=== PATIENT | female | born 1995 | race Caucasian/White ===

== ENCOUNTER 2019-08-21 14:32 | Observation (INO) ==
[2019-08-21] MEDS ORDERED: MoRPHine SULFATE 4 MG/ML 1 ML CARP\\VIAL IV STA (14:47)
[2019-08-21] MEDS ORDERED: SODIUM CHLORIDE 0.9% 1000ML 2,000 ML IV ONE (14:47)
[2019-08-21] MEDS ORDERED: ONDANSETRON INJ 2 MG/ML 2 ML VIAL IV STA (14:48)
[2019-08-21 15:28] LABS: Hematocrit (blood only) 40.5 % (37-47); Hemoglobin 13.6 g/dL (12.0-16.0); Mean Corpuscular Hemoglobin 29.6 pg (25-34); Mean Corpuscular Hgb Conc 33.6 g/dL (32-36); Mean Platelet Volume 10.9 fL (7.4-10.4); Platelet Count 254 K/uL (130-400); RDW Coefficient of Variation 13.5 % (11.5-14.5); RDW Standard Deviation 43.7 fL (36.4-46.3)
[2019-08-21 15:40] LABS: iSTAT Creatinine 0.8 mg/dl (0.6-1.3); iSTAT Hemoglobin 14.3 g/dl (12.0-16.0); iSTAT Ionized Calcium 1.16 mmol/l (1.12-1.32); iSTAT Potassium 3.8 mEq/L (3.3-5.0)
[2019-08-21 15:47] LABS: Albumin Level 3.8 gm/dl (3.4-5.0); BUN Creatinine Ratio 6.9 (10-20); Creatinine Clr Calc Pharmacy 71.6 ml/min; Est GFR (African American) 90.4; Potassium 3.6 mmol/L (3.5-5.1)
[2019-08-21 15:50] LABS: Albumin Globulin Ratio 0.8 (0.9-2); Bilirubin,Total 0.6 mg/dl (0.2-1); Globulin 4.8 gm/dl (2.5-4.0); Total Protein 8.6 gm/dl (6.4-8.2)
[2019-08-21 15:56] LABS: Pregnancy Test, Serum Negative (Negative)
[2019-08-21] MEDS ORDERED: IOVERSOL 100ml IV PRN (16:03)
[2019-08-21 16:04] LABS: Basophils # (auto) 0.03 K/uL (0-0.2); Basophils % (auto) 0.1 %; Eosinophils # (auto) 0.03 K/uL (0-0.5); Eosinophils % (auto) 0.1 %; Immature Granulocytes # (auto) 0.06 K/uL (0.00-0.02); Immature Granulocytes % (auto) 0.3 %; Lymphocytes # (auto) 1.74 K/uL (1.2-3.4); Lymphocytes % (auto) 8.6 %; Monocytes # (auto) 2.41 K/uL (0.11-0.59); Monocytes % (auto) 11.9 %; Neutrophils # (auto) 16.03 K/uL (1.4-6.5)
--- NOTE | 2019-08-21 16:20 | CT Scan Report ---
CT abd pelvis IV con only CT DOSE: 369.33 mGy.cm HISTORY: Flank pain rlq abd pain TECHNIQUE: Multiaxial CT images of the abdomen and pelvis were performed following the use of intrave nous contrast. A dose lowering technique was utilized adhering to the principles of ALARA. COMPARISON STUDY: None. FINDINGS: Lung bases are clear. Liver spleen and pancreas are unremarkable. The left kidney is negative for hydronephrosis. Right kidney shows heterogeneous enhancement characteristics as mid to lower pole has lateral and ant erior aspects. There are several nonobstructing right renal cortical calcifications. There is slight uroepithelial thickening of the proximal to mid ureter. Bowel pattern suggesting nonobstructive ileus. Several fluid-filled loops of small bowel are present. There is a trace amount of free fluid within the pelvic cul-de-sac which is most likely physiologic. The appendix is normal. IMPRESSION: 1. Findings consistent with right renal pyelonephritis. 2. Upper ureteral endothelial thickening suggesting additional upper urinary tract inflammatory jimenez e. 3. Mild right renal perinephric fat stranding. 4. No evidence for abscess or collection. 5. Normal appendix. The above report was generated using voice recognition software. It may contain grammatical, syntax or spelling errors. Electronically signed by: Hector Clemente M.D. 08/21/2019 4:18 PM
[2019-08-21] MEDS ORDERED: cefTRIAXone SODIUM 1,000 MG/50 ML BAG IV STA (16:50)
[2019-08-21] MEDS ORDERED: SODIUM CHLORIDE 0.9% 1000ML 1,000 ML IV ONE (16:57)
[2019-08-21 17:22] LABS: Appearance Urine Clear (Clear); Bacteria Urine Automated Negative (Negative); Bilirubin Urine Negative (Negative); Blood Urine 1+ (Negative); Color Urine Yellow; Epithelial Cell Urine Auto 20-30 /lpf (0-5); Glucose Urine UA Negative (Negative); Ketones Urine Trace (Negative); Leukocyte Esterase Urine 1+ (Negative); Nitrite Urine Negative (Negative); Protein Urine Negative (Negative); Specific Gravity Urine 1.038 (1.000-1.030); Urobilinogen Urine Negative (Negative)
--- NOTE | 2019-08-21 18:23 | History & Physical Report ---
Date of Service August 21, 2019 Assessment & Plan (1) Pyelonephritis: Patient started on IV Rocephin. Continue the same. Add Toradol for pain control. (2) Leukocytosis: Secondary to above. Repeat labs in a.m. (3) Sepsis: We will check blood culture and urine cultures to rule out UTI with sepsis. Check lactic acid in a.m Add SCD for DVT prophylaxis we will repeat labs in a.m. History of Present Illness Chief Complaint: Right flank pain Primary Care Provider: NO PCP The patient is 23 years old female who presented to the emergency room with complaints of right flank pain for last 3 days. The pain has been gradually getting worse but got really worse last night. She had associated low-grade fever with chills. She denies any dysuria or hematuria. The further work-up done in the ER showed that the patient has right-sided pyelonephritis. She was started on IV Rocephin and will be admitted for further evaluation and management. Allergies Allergy/AdvReac Type Severity Reaction Status Date / Time Penicillins Allergy Severe Swelling Unverified 08/21/19 16:55 of Lip/Tongue/Throat Sulfa (Sulfonamide Allergy Unknown Unknown Unverified 08/21/19 16:55 Antibiotics) Home Medications Home Medications Medication Instructions Recorded Confirmed Type norethindrone ac-eth estradiol 1 tab PO QAM 08/21/19 08/21/19 History [11/10 (21)] Past Med/Surg History Medical History Non-cardiac chest pain (Acute) Family History Other No significant family history Social History Preferred Language: Cuban Feels Safe at Home: Yes Smoking Status: Former smoker Review of Systems Review of Systems: All systems reviewed & are unremarkable except as noted in HPI & below Physical Exam Physical Exam: GENERAL : No acute distress EYES: No icterus, gaze conjugate NOSE: No evidence of epistaxis MOUTH: No lesions or candidiasis, mucosa moist NECK: Supple LUNGS: CTA B/L, no wheezes, rales or rhonchi HEART: Regular, rate controlled ABDOMEN: Soft, NT, ND, BS Present EXTREMITIES: No LE edema, pedal pulses intact NEURO: A&OX3 Right-sided flank tenderness noted Results & Data Vital Signs (Past 12 Hours) Vital Signs Temp Pulse Pulse Resp BP BP Pulse Ox 08/21/19 17:30 99 H 18 128/77 100 08/21/19 15:46 116 H 20 127/79 97 08/21/19 15:25 100 08/21/19 14:34 97.9 F 116 H 18 117/77 99 Laboratory Results 08/21/19 15:13 08/21/19 15:[address] abd pelvis IV con only CT DOSE: 369.33 mGy.cm HISTORY: Flank pain rlq abd pain TECHNIQUE: Multiaxial CT images of the abdomen and pelvis were performed following the use of intravenous contrast. A dose lowering technique was utilized adhering to the principles of ALARA. COMPARISON STUDY: None. FINDINGS: Lung bases are clear. Liver spleen and pancreas are unremarkable. The left kidney is negative for hydronephrosis. Right kidney shows heterogeneous enhancement characteristics as mid to lower pole has lateral and anterior aspects. There are several nonobstructing right renal cortical calcifications. There is slight uroepithelial thickening of the proximal to mid ureter. Bowel pattern suggesting nonobstructive ileus. Several fluid-filled loops of small bowel are present. There is a trace amount of free fluid within the pelvic cul-de-sac which is most likely physiologic. The appendix is normal. IMPRESSION: 1. Findings consistent with right renal pyelonephritis. 2. Upper ureteral endothelial thickening suggesting additional upper urinary tract inflammatory change. 3. Mild right renal perinephric fat stranding. 4. No evidence for abscess or collection. 5. Normal appendix. Code Status & VTE Plan Code Status Full code VTE Prophylaxis Plan VTE Prophylaxis will be ordered: Yes PG Care Time/CCT Total # of Minutes Spent Total Time Spent with Patient: Total time spent is greater than 50% in coordination of care (as documented) at patient's floor/unit and/or counseling patient: (1) Leukocytosis Leukocytosis type: unspecified Qualified Code(s): D72.829 - Elevated white blood cell count, unspecified (2) Sepsis Sepsis acute organ dysfunction status: unspecified Sepsis type: sepsis due to unspecified organism Qualified Code(s): A41.9 - Sepsis, unspecified organism
[2019-08-21] MEDS ORDERED: MAGNESIUM HYDROXIDE SUSP 30 ML UDC PO PRN (19:17)
[2019-08-21] MEDS ORDERED: POLYETHYLENE (MIRALAX) 17 GM PACK PO PRN (19:17)
[2019-08-21] MEDS ORDERED: ALUMINUM/MAGNESIUM SUSP 30 ML UDC PO PRN (19:17)
[2019-08-21] MEDS ORDERED: ONDANSETRON INJ 2 MG/ML 2 ML VIAL IV PRN (19:17)
[2019-08-21] MEDS: ACETAMINOPHEN 325 MG TAB PO PRN ×2 (19:32→23:46)
[2019-08-21] MEDS: SODIUM CHLORIDE 0.9% 1000ML 1,000 ML IV SCH ×2 (19:32→23:46)
[2019-08-21] MEDS: KETOROLAC TROMETHAMINE 15 MG/ML VIAL IV PRN (21:11)
--- NOTE | 2019-08-21 21:25 | Emergency Department Note ---
Entered by Shanika Gann acting as a scribe for Margarito Salas DO History of Present Illness General Chief complaint: Abdominal Pain Stated complaint: RLQ Pain, fever Source: patient History of Present Illness Onset (ago): day(s) 4 Location: abdomen (right lower quadrant) Pain Consistency: + other (persistent) Maximum Pain Intensity: 8 Quality: + other (intense) Relieved By: not by medication (Advil) Exacerbated By: + movement (general and lifting right leg); not by eating Associated symptoms: + denies other symptoms (fever, cough, runny nose, congestion, vaginal bleeding, or vaginal discharge) and + other (loss of zachery etite) The patient is a 23 year old female with a history of IBS that is presenting to the Emergency Room with complaints of persistent intense right lower quadrant abdominal pain that started 4 days ago. The patient reports that the pain started dull and worsened over the course of the week. She states that todays pain is the worst that it has been. She notes that she has been taking Advil without relief in her pain. She states that she is making herself eat and drink secondary to a loss in appetite. She notes that the pain worsens with movement and with lifting her right leg. The patient denies that the pain worsens with eating. She denies any fever, cough, runny nose, congestion, vaginal bleeding, or vaginal discharge. She notes that she has a history of IBS that resolved on its own. She reports that she went to [facility] and was referred to the ED today. She states that she takes control. Home Medications Home Medications Medication Instructions Recorded Confirmed Type norethindrone ac-eth estradiol 1 tab PO QAM 08/21/19 08/21/19 History [11/10 ()] Allergies Allergy/AdvReac Type Severity Reaction Status Date / Time Penicillins Allergy Severe Swelling Unverified 08/21/19 16:55 of Lip/Tongue/Throat Sulfa (Sulfonamide Allergy Unknown Unknown Unverified 08/21/19 16:55 Antibiotics) Past Med/Surg History Medical History Non-cardiac chest pain (Acute) Family History Other No significant family history Social History Preferred Language: Burundian Communication Ability: Effective Lead Designer Required: No Beliefs That Will Affect Care: None Current Living Situation: Alone and Spouse Current Living Situation Comment: lives with boyfriend here and alone at school Feels Safe at Home: No Is there a partner from a previous relationship who is making you feel unsafe now?: No Smoking Status: Never smoker Hx Alcohol Use: Yes Hx Substance Use: No Review of Systems See HPI for pertinent positives & negatives. and A total of 10 systems reviewed and were otherwise negative Physical Exam Vital Signs Vital Signs - 24 hr 08/21/19 14:34 08/21/19 15:25 08/21/19 15:46 Temperature 36.6 C Temperature Source Oral Sepsis Recent Fever Within 48 Hours Yes Sepsis New/Unexplained Change in Mental Status No Sepsis Action Taken by Nursing Physician Notified Pulse Rate 116 H Pulse Rate [Apical] 116 H Respiratory Rate 18 20 Respiratory Depth Normal Blood Pressure 117/77 Blood Pressure [Left Arm] 127/79 Blood Pressure Mean 90 Blood Pressure Mean [Left Arm] 95 Blood Pressure Position Sitting Pulse Oximetry 99 100 97 Oxygen Delivery Method Room Air Room Air Room Air 08/21/19 17:30 Temperature Temperature Source Sepsis Recent Fever Within 48 Hours Sepsis New/Unexplained Change in Mental Status Sepsis Action Taken by Nursing Pulse Rate Pulse Rate [Apical] 99 H Respiratory Rate 18 Respiratory Depth Blood Pressure Blood Pressure [Left Arm] 128/77 Blood Pressure Mean Blood Pressure Mean [Left Arm] 94 Blood Pressure Position Pulse Oximetry 100 Oxygen Delivery Method Room Air GENERAL: Sitting up in bed, alert, well nourished, moderate distress, non-toxic, holding right lower quadrant. EYE EXAM: normal conjunctiva. OROPHARYNX: no exudate, no erythema, lips, buccal mucosa, and tongue normal and mucous membranes are moist NECK: supple, no nuchal rigidity, no adenopathy, non-tender LUNGS: Clear to auscultation. Normal chest wall mechanics HEART: Tachycardic rate, no murmurs, S1 normal and S2 normal ABDOMEN: abdomen soft, normo-active bowel sounds, no masses, no rebound or guarding, acutely tender to right lower quadrant. BACK: Back is symmetrical on inspection and there is no deformity, no midline tenderness, no CVA tenderness. SKIN: no rashes and no bruising UPPER EXTREMITIES: upper extremities are grossly normal. LOWER EXTREMITIES: No pitting edema. NEURO EXAM: Normal sensorium, cranial nerves II-XII grossly intact, normal speech, no gross weakness of arms, no gross weakness of legs. Course ED COURSE: Vital signs were reviewed and showed tachycardic The patients medical record was reviewed The above diagnostic studies were performed and reviewed. ED treatments and interventions as stated above. 1440: The patient was evaluated in room A11B. A complete history and physical examination was performed. 1657: I reevaluated the patient at this time. She is waiting to give a urine sample. 1725: I updated the patient on her current lab and imaging results. She is unsure if she would like to stay in the hospital. 1741: The patient has decided to stay in the hospital for further evaluation. 1744: I discussed the patients case with Dr. Kang, [facility], who will evaluate the patient for further management and care. 1750: Upon reevaluation, the patient is resting comfortably. I discussed my findings with the patient and she understands and agrees with the treatment plan. Based on the patients age, coexisting illnesses, exam and lab findings the deci bossman to treat as an inpatient was made. The patient remained stable while under my care. The patient will be evaluated for further management. Administered Medications Acetaminophen (Tylenol) 650 mg PO Q4H PRN PRN Reason: pain/fever Stop: 09/20/19 19:16 Last Admin: 08/21/19 19:32 Dose: 650 mg Documented by: [id number] Sodium Chloride (Nss 1000ml) 1,000 mls @ 125 mls/hr IV .Q8H TROY Stop: 09/20/19 19:16 Last Admin: 08/21/19 19:32 Dose: 125 mls/hr Documented by: [id number] Ketorolac Tromethamine (Toradol) 15 mg IV Q6H PRN PRN Reason: Pain Stop: 08/26/19 19:16 Last Admin: 08/21/19 21:11 Dose: 15 mg Documented by: [id number] Discontinued Medications Sodium Chloride (Nss 1000ml) 2,000 mls @ 999 mls/hr IV .Q2H1M ONE Stop: 08/21/19 16:47 Last Infusion: 08/21/19 18:32 Dose: 0 mls/hr Documented by: [id number] Admin: 08/21/19 15:35 Dose: 999 mls/hr Documented by: [id number] Ceftriaxone Sodium (Rocephin) 1,000 mg in 50 mls @ 100 mls/hr IV NOW STA Stop: 08/21/19 17:19 Last Infusion: 08/21/19 18:32 Dose: 0 mls/hr Documented by: [id number] Admin: 08/21/19 17:00 Dose: 100 mls/hr Documented by: [id number] Sodium Chloride (Nss 1000ml) 1,000 mls @ 999 mls/hr IV .Q1H1M ONE Stop: 08/21/19 17:57 Last Infusion: 08/21/19 18:31 Dose: 0 mls/hr Documented by: [id number] Admin: 08/21/19 17:04 Dose: 999 mls/hr Documented by: [id number] Ioversol (Optiray 320 100ml) 94 ml IV ONCE PRN PRN Reason: Interaction Checking Stop: 08/25/19 16:02 Last Admin: 08/21/19 16:04 Dose: 94 ml Documented by: [id number] Morphine Sulfate (Morphine Sulfate) 4 mg IV NOW STA Stop: 08/21/19 14:48 Last Admin: 08/21/19 15:35 Dose: 4 mg Documented by: [id number] Ondansetron HCl (Zofran) 4 mg IV NOW STA Stop: 08/21/19 14:49 Last Admin: 08/21/19 15:35 Dose: 4 mg Documented by: [id number] Medical Decision Making Differential Diagnosis Differential diagnoses includes but is not limited to gastritis, peptic ulcer disease, GERD, gallbladder disease, pancreatitis, small bowel obstruction, acute coronary syndrome, pericarditis, ischemic bowel, irritable bowel disease, irri table bowel syndrome, appendicitis, diverticulitis, malignancy, hernia, urinary tract infection, torsion, /ectopic , perforation, trauma, infectious. Medical Records Attestation: I reviewed the patient's medical records. Home Medications Current Medication List: was personally reviewed by me Laboratory Data Attestation: I reviewed the patient's lab results. Result diagrams: 08/21/19 15:13 08/21/19 15:13 Lab Results 08/21/19 08/21/19 08/21/19 Range/Units 15:13 15:13 15:13 WBC 20.30 H (4.8-10.8) K/uL RBC 4.60 (4.2-5.4) M/uL Hgb 13.6 (12.0-16.0) g/dL POC Hgb (12.0-16.0) g/dl Hct 40.5 (37-47) % POC Hct (37-47) % MCV 88.0 (80-100) fL MCH 29.6 (25-34) pg MCHC 33.6 (32-36) g/dL RDW Std Deviation 43.7 (36.4-46.3) fL RDW Coeff of Juli 13.5 (11.5-14.5) % Plt Count 254 (130-400) K/uL MPV 10.9 H (7.4-10.4) fL Immature Gran % (Auto) 0.3 % Neut % (Auto) 79.0 % Lymph % (Auto) 8.6 % Thomas % (Auto) 11.9 % Eos % (Auto) 0.1 % Baso % (Auto) 0.1 % Immature Gran # (Auto) 0.06 H (0.00-0.02) K/uL Neut # (Auto) 16.03 H (1.4-6.5) K/uL Lymph # (Auto) 1.74 (1.2-3.4) K/uL Thomas # (Auto) 2.41 H (0.11-0.59) K/uL Eos # (Auto) 0.03 (0-0.5) K/uL Baso # (Auto) 0.03 (0-0.2) K/uL POC Sodium (135-144) mEq/L Sodium 137 (136-145) mmol/L POC Potassium (3.3-5.0) mEq/L Potassium 3.6 (3.5-5.1) mmol/L POC Chloride (101-112) mEq/L Chloride 103 (98-107) mmol/L Carbon Dioxide 27 (21-32) mmol/L POC Total CO2 (24-31) mEq/l Anion Gap 7.0 (3-11) POC Anion Gap (16-25) mmol/L POC BUN (7-18) mg/dl BUN 7 (7-18) mg/dl Creatinine 1.02 (0.6-1.2) mg/dl POC Creatinine (0.6-1.3) mg/dl Est Cr Clr Drug Dosing 71.6 ml/min Est GFR ( Amer) 90.4 Est GFR (Non-Af Amer) 78.0 BUN/Creatinine Ratio 6.9 L (10-20) Glucose 92 (70-99) mg/dl POC Glucose (other) (70-99) mg/dl Calcium 9.0 (8.5-10.1) mg/dl POC Ioniz Calcium Antolin (1.12-1.32) mmol/l Total Bilirubin 0.6 (0.2-1) mg/dl AST 12 L (15-37) U/L ALT 18 (12-78) U/L Alkaline Phosphatase 79 (45-117) U/L Total Protein 8.6 H (6.4-8.2) gm/dl Albumin 3.8 (3.4-5.0) gm/dl Globulin 4.8 H (2.5-4.0) gm/dl Albumin/Globulin Ratio 0.8 L (0.9-2) Lipase 102 (73-393) U/L HCG, Qual Negative (Negative) Urine Color Urine Appearance (Clear) Urine pH (4.5-7.5) Ur Specific [place] (1.000-1.030) Urine Protein (Negative) Urine Glucose (UA) (Negative) Urine Ketones (Negative) Urine Blood (Negative) Urine Nitrite (Negative) Urine Bilirubin (Negative) Urine Urobilinogen (Negative) Ur Leukocyte Esterase (Negative) Urine WBC (Auto) (0-5) /hpf Urine RBC (Auto) (0-4) /hpf U Hyaline Cast (Auto) (0-5) /lpf U Epithel Cells (Auto) (0-5) /lpf Urine Bacteria (Auto) (Negative) POC Ur Test (NEG) 08/21/19 08/21/19 08/21/19 Range/Units 15:26 17:06 17:06 WBC (4.8-10.8) K/uL RBC (4.2-5.4) M/uL Hgb (12.0-16.0) g/dL POC Hgb 14.3 (12.0-16.0) g/dl Hct (37-47) % POC Hct 42 (37-47) % MCV (80-100) fL MCH (25-34) pg MCHC (32-36) g/dL RDW Std Deviation (36.4-46.3) fL RDW Coeff of Juli (11.5-14.5) % Plt Count (130-400) K/uL MPV (7.4-10.4) fL Immature Gran % (Auto) % Neut % (Auto) % Lymph % (Auto) % Thomas % (Auto) % Eos % (Auto) % Baso % (Auto) % Immature Gran # (Auto) (0.00-0.02) K/uL Neut # (Auto) (1.4-6.5) K/uL Lymph # (Auto) (1.2-3.4) K/uL Thomas # (Auto) (0.11-0.59) K/uL Eos # (Auto) (0-0.5) K/uL Baso # (Auto) (0-0.2) K/uL POC Sodium 138 (135-144) mEq/L Sodium (136-145) mmol/L POC Potassium 3.8 (3.3-5.0) mEq/L Potassium (3.5-5.1) mmol/L POC Chloride 102 (101-112) mEq/L Chloride (98-107) mmol/L Carbon Dioxide (21-32) mmol/L POC Total CO2 26 (24-31) mEq/l Anion Gap (3-11) POC Anion Gap 16.0 (16-25) mmol/L POC BUN 5 L (7-18) mg/dl BUN (7-18) mg/dl Creatinine (0.6-1.2) mg/dl POC Creatinine 0.8 (0.6-1.3) mg/dl Est Cr Clr Drug Dosing ml/min Est GFR ( Amer) Est GFR (Non-Af Amer) BUN/Creatinine Ratio (10-20) Glucose (70-99) mg/dl POC Glucose (other) 96 (70-99) mg/dl Calcium (8.5-10.1) mg/dl POC Ioniz Calcium Antolin 1.16 (1.12-1.32) mmol/l Total Bilirubin (0.2-1) mg/dl AST (15-37) U/L ALT (12-78) U/L Alkaline Phosphatase (45-117) U/L Total Protein (6.4-8.2) gm/dl Albumin (3.4-5.0) gm/dl Globulin (2.5-4.0) gm/dl Albumin/Globulin Ratio (0.9-2) Lipase (73-393) U/L HCG, Qual (Negative) Urine Color Yellow Urine Appearance Clear (Clear) Urine pH 7.0 (4.5-7.5) Ur Specific [place] 1.038 H (1.000-1.030) Urine Protein Negative (Negative) Urine Glucose (UA) Negative (Negative) Urine Ketones Trace H (Negative) Urine Blood 1+ H (Negative) Urine Nitrite Negative (Negative) Urine Bilirubin Negative (Negative) Urine Urobilinogen Negative (Negative) Ur Leukocyte Esterase 1+ H (Negative) Urine WBC (Auto) 10-30 H (0-5) /hpf Urine RBC (Auto) 5-10 H (0-4) /hpf U Hyaline Cast (Auto) 1-5 (0-5) /lpf U Epithel Cells (Auto) 20-30 H (0-5) /lpf Urine Bacteria (Auto) Negative (Negative) POC Ur Test NEG (NEG) Imaging Data Radiologist's Impression: Radiology results as stated below per my review and the radiologist's interpretation: CT abd pelvis IV con only CT DOSE: 369.33 mGy.cm HISTORY: Flank pain rlq abd pain TECHNIQUE: Multiaxial CT images of the abdomen and pelvis were performed follo wing the use of intravenous contrast. A dose lowering technique was utilized adhering to the principles of ALARA. COMPARISON STUDY: None. FINDINGS: Lung bases are clear. Liver spleen and pancreas are unremarkable. The left kidney is negative for hydronephrosis. Right kidney shows heterogeneous enhancement characteristics as mid to lower pole has lateral and anterior aspects. There are several nonobstructing right renal cortical calcifications. There is slight uroepithelial thickening of the proximal to mid ureter. Bowel pattern suggesting nonobstructive ileus. Several fluid-filled loops of small bowel are present. There is a trace amount of free fluid within the pelvic cul-de-sac which is most likely physiologic. The appendix is normal. IMPRESSION: 1. Findings consistent with right renal pyelonephritis. 2. Upper ureteral endothelial thickening suggesting additional upper urinary tract inflammatory change. 3. Mild right renal perinephric fat stranding. 4. No evidence for abscess or collection. 5. Normal appendix. The above report was generated using voice recognition software. It may contain grammatical, syntax or spelling errors. Electronically signed by: Hector Clemente M.D. 08/21/2019 4:18 PM Blood Pressure Blood Pressure Findings: Elevated blood pressure Blood Pressure Disposition: elevated BP felt to be situational MDM Narrative Patient is a 21-year-old female presents the ER for right lower quadrant pain radiating through to her back. IV was established blood work was obtained. She is febrile and tachycardic. Labs show a leukocytosis of 20,000. BMP was unremarkable along with LFTs. Lactate was +2.3. Lipase is unremarkable. Urine is consistent with UTI. CT abdomen pelvis shows pyelonephritis. Patient was given IV fluids x3 L, IV Rocephin and was updated bedside. On 3 separate occasions I discussed with her the importance of staying and she was requesting to leave. I also discussed with mom. She was eventually agreeable and admitted to the hospital with sepsis secondary to pyelonephritis. Impression & Plan Sepsis, Pyelonephritis, Leukocytosis Critical Care Time Critical Care Time: Yes Total Critical Care Time: 30 I have personally spent 30 minutes of critical care time in the direct management of this patient. This includes bedside care, interpretation of diagnostic studies, and testing, discussion with consultants, patient, and family members, and other required patient management activities. This 30 minutes is in excess of all separately billable procedures. Discharge Plan Visit Data *Final* Discharge Date/Time: 08/21/19 18:48 Chief Complaint: Abdominal Pain Stated Complaint: RLQ Pain, fever ED Provider: Margarito Salas Discharge Problem: Sepsis, Pyelonephritis, Leukocytosis Patient Disposition: Admitted As Inpatient Discharge Instructions Interventions: ED Discharge Assessment Last Done: 08/21/19 18:48 Discharge Problem: Sepsis Qualifiers: Sepsis type: sepsis due to unspecified organism Sepsis acute organ dysfunction status: unspecified Qualified Code(s): A41.9 - Sepsis, unspecified organism Leukocytosis Qualifiers: Leukocytosis type: unspecified Qualified Code(s): D72.829 - Elevated white blood cell count, unspecified The scribe's documentation has been prepared under my direction and personally reviewed by me in its entirety. I confirm that the note above accurately reflects all work, treatment, procedures, and medical decision making performed by me.
[2019-08-22] MEDS: KETOROLAC TROMETHAMINE 15 MG/ML VIAL IV PRN (04:11)
[2019-08-22] MEDS: SODIUM CHLORIDE 0.9% 1000ML 1,000 ML IV SCH ×2 (06:25→14:24)
[2019-08-22 07:53] LABS: Hematocrit (blood only) 31.6 % (37-47); Hemoglobin 10.4 g/dL (12.0-16.0); Mean Corpuscular Hgb Conc 32.9 g/dL (32-36); Mean Platelet Volume 10.7 fL (7.4-10.4); Platelet Count 191 K/uL (130-400); RDW Coefficient of Variation 13.6 % (11.5-14.5); RDW Standard Deviation 44.3 fL (36.4-46.3); Red Blood Count 3.59 M/uL (4.2-5.4); White Blood Count 11.97 K/uL (4.8-10.8)
[2019-08-22 08:21] LABS: BUN Creatinine Ratio 6.8 (10-20); Calcium 7.7 mg/dl (8.5-10.1); Creatinine Clr Calc Pharmacy 101.4 ml/min; Est GFR (African American) 137.8; Est GFR (Non-African American) 118.9; Potassium 3.5 mmol/L (3.5-5.1)
[2019-08-22] MEDS ORDERED: NORETHINDRONE AC ETH ESTRADIOL PO SCH (09:00)
[2019-08-22] MEDS ORDERED: IBUPROFEN 600 MG TAB PO PRN (09:51)
[2019-08-22] MEDS ORDERED: IBUPROFEN 600 MG TAB PO STA (09:52)
[2019-08-22] MEDS: ACETAMINOPHEN 325 MG TAB PO SCH ×2 (10:46→14:22)
[2019-08-22] MEDS ORDERED: cefTRIAXone SODIUM 1,000 MG in DEXTROSE 5% 50 ML IV SCH (16:00)
--- NOTE | 2019-08-22 17:38 | Discharge Summary ---
Date of Service August 22, 2019 Admission HPI Per Admitting Provider The patient is 23 years old female who presented to the emergency room with complaints of right flank pain for last 3 days. The pain has been gradually getting worse but got really worse last night. She had associated low-grade fever with chills. She denies any dysuria or hematuria. The further work-up done in the ER showed that the patient has right-sided pyelonephritis. She was started on IV Rocephin and will be admitted for further evaluation and management. Principal Diagnosis pyelonephritis with sepsis present on admission - improving Discharge Exam Seen twice today. This morning she appeared mildly uncomfortable but later this afternoon appearing in no distress whatsoever. Both times HEENT normal cephalic atraumatic mucous members moist. Breathing unlabored no accessory muscle use good effort. Skin shows no rashes no pallor or icterus. Neuro shows no focal deficits. Discharge Data Allergies Allergy/AdvReac Type Severity Reaction Status Date / Time Penicillins Allergy Severe Swelling Unverified 08/21/19 16:55 of Lip/Tongue/Throat Sulfa (Sulfonamide Allergy Unknown Unknown Unverified 08/21/19 16:55 Antibiotics) Consultations 08/21/19 17:47 ED Decision to Admit Stat Ordered Studies 08/21/19 14:47 CT abd pelvis IV con only Stat Hospital Course (1) Pyelonephritis: With sepsis present on admissionimproving quite nicely. Urine culture right now just showing gram-negative rods, await final sensitivities, however given how much the patient has improved and her strong desire to get home, we had an extensive discussion and both felt it reasonable to get today's dose of ceftriaxone which would cover her into tomorrow afternoon, await sensitivity results which I will call her with, presumed to finish out a course of treatment with cefdinir, but if antibiotics need to be tailored differently than I will call in something appropriate based on her sensitivities. She expressed good understanding of this. Given that his pyelonephritis will treat for 14 total days, 12 days of p.o. Sepsis improved, white count improved dramatically she is afebrile, she is not tachycardic, and she is feeling better Pain is improved nicely with ibuprofen. Stable for home Updated mother with patient's permission. (2) Leukocytosis: Secondary to above. improved (3) Sepsis: Improved, see above. Total Time Total Time Spent Total Time Spent (In Minutes): >30 Discharge Plan Discharge Items Patient Disposition: Home - Self-Care Reason For Visit: RIGHT FLANK PAIN Discharge Diagnosis: pyelonephritis (kidney infection) Activity: Resume your previous activity Non-emergency contact: Primary Care Provider Call non-emergency contact if: you have any medication questions, your symptoms worsen and your temperature is above 101 Follow-up/Referrals: PCP,NO [Primary Care Provider] - Diet: Regular Addtl Attending Provider Instructions: pyelonephritis (kidney infection) -as we discussed, these kinds of infections do make people feel really ill, and surprisingly a solid 20% of people with a kidney infection do not have urinary symptoms as a "warning" -- which fits with what happened to you -fortunately you're getting better quickly - and the antibiotic that we started you on (ceftriaxone) appears to be getting the job done nicely -your dose that we gave this afternoon lasts 24hrs, so you won't need to start the oral antibiotics until tomorrow night -we'll work on the presumption that the "close cousin" antibiotic (cefdinir) will be the best way to finish out treatment; but i'll look for your culture results once they're finalized and call you either way -typically we'll need to treat kidney infections for a while to get people better - so we'll need to treat for 14 days total (12 more days of the oral antibiotic - next dose tomorrow 08/23/19 - in the evening -because these things get better fairly slowly, it's definitely important to take the full course of antibiotics - stopping partway through would run the risk of getting worse and/or having more resistant bacteria -if the cultures show that the cefdinir won't work, when i call you i'll let you know what the "change of plans" will be -if you haven't heard from me by about 2p tomorrow, please call [phone] and have them page me as we discussed, it can easily take a month to totally get better from a kidney infection - the fevers will probably take a day or two to totally resolve, the pain will probably take a few days to a week; but what may take the longest is just a nondescript fatigue -- that is what could take until thanksgiving to get better -- so if you see that you're just feeling really tired, give it time. make sure you're getting plenty of rest and eating well. use the ibuprofen up to every 6 hours as needed for the pain in your side; take it with food so it doesn't upset your stomach we'd want you to follow up with your regular PCP late next week for a recheck to make sure you're getting totally better Pending Studies at Discharge: Yes Studies:: urine culture Stand-Alone Forms: [facility], Smoking Cessation Medications and DC Order Prescriptions: New cefdinir 300 mg capsule 300 mg PO BID 12 Days Qty: 24 RF: 0 ibuprofen 600 mg tablet 600 mg PO Q6H PRN (Reason: pain) Qty: 10 RF: 0 Continued norethindrone ac-eth estradiol [11/10 ()] 1-20 mg-mcg tablet 1 tab PO QAM RF: 0 Discharge Orders: Discharge Order (Routine); Ordered 08/22/19 Ordered By: Margarito Reynolds Admission Data Admit Date/Time: 08/21/19 18:13 Attending Provider: Margarito Reynolds Admit Provider: Hermelindo Kang Primary Care Provider: PCP,NO Other Providers: Hermelindo Kang Other Interventions: Discharge Summary Assessment (RN) Last Done: 08/22/19 16:38 DC Date/Time DO NOT enter until pt leaves facility: 08/22/19 17:00
== END 2019-08-22 17:00 | disposition home or self-care (01) ==
LOC: 4W 14:32 → ED 14:32 → SUATTDRO 18:13 → 4W 18:48